=== PATIENT | male | born 1955 | race Caucasian/White ===

== ENCOUNTER 2017-12-15 23:46 | Observation (INO) | payer BC ==
[~2017-12-15] VITALS: Ht 185.4 cm; Wt 88.5 kg
[2017-12-16] VITALS (12 sets, daily range): BP systolic 92–109; BP diastolic 50–67; Ht 185.4 cm; Wt 88.5 kg
[2017-12-16 00:26] LABS: BASOPHILS 1.1 % (0-2); EOSINOPHILS 4.5 % (0-7); HEMATOCRIT 43.5 % (42.0-54.0); LYMPHOCYTES 43.7 % (15-50); MCH 32.3 pg (26.0-34.0); MCHC 34.5 g/dL (31.0-37.0); MCV 93.8 fL (80.0-100.0); MEAN PLATELET VOLUME 10.2 fL (7.4-10.4); MONOCYTES 14.7 % (2-11); PLATELET COUNT 171 10x3/uL (130-400); RBC 4.64 10x6/uL (4.20-6.10); RDW 12.9 % (11.5-14.5); WBC 4.5 10x3/uL (4.8-10.8)
[2017-12-16 01:00] LABS: ALBUMIN 3.8 g/dL (3.4-5.0); ALKALINE PHOSPHATASE 111 U/L (46-116); ALT (SGPT) 28 U/L (10-68); BILIRUBIN - TOTAL 0.46 mg/dL (0.2-1.3); CALC OSMOLALITY 287 mosm/kg (275-300); CALCIUM 8.7 mg/dL (8.5-10.1); CARBON DIOXIDE 24.6 mmol/L (21.0-32.0); CHLORIDE - SERUM 105 mmol/L (98-107); CREATINE KINASE 100 UL (21-232); GLUCOSE 124 mg/dL (74-106); MAGNESIUM - SERUM 2.1 mg/dL (1.8-2.4); POTASSIUM - SERUM 4.2 mmol/L (3.5-5.1); PRO BNP 51 pg/mL (0-125); PROTEIN - SERUM 7.3 g/dL (6.4-8.2); SODIUM 142 mmol/L (136-145); T4 THYROXINE 7.7 ug/dL (4.7-13.3); THYROID STIMULATING HORMONE 4.03 uIU/mL (0.36-3.74); TROPONIN-I < 0.017 ng/mL (0.000-0.060); UREA NITROGEN 23 mg/dL (7-18); eGFR NON AFRICAN AMERICAN 80 mL/min (90-120)
[2017-12-16] MEDS ORDERED: CARDURA4 MG PO (04:39)
[2017-12-16] MEDS ORDERED: BAYER CHEWABLE81 MG PO (04:40)
[2017-12-16] MEDS ORDERED: ACETAMINOPHEN500 M1 PO (04:41)
[2017-12-16] MEDS ORDERED: CARDIZEM60 MG PO (16:37)
[2017-12-16] MEDS ORDERED: ELIQUIS5 MG PO (16:38)
== END 2017-12-16 17:25 | disposition home or self-care (01) ==
LOC: D.ER 23:46 → D.CVICU 12-16 02:13 → OBSVTIME 12-16 02:13 → D.EDHOLD 12-16 02:13 → D.CVICU 12-16 02:13
PROVIDERS: Emergency Medicine
DX: I48.91 Unspecified atrial fibrillation (principal); E07.89 Other specified disorders of thyroid

== ENCOUNTER 2019-06-04 01:39 | Emergency (ER) | payer BC ==
[~2019-06-04] VITALS: Ht 185.4 cm; Wt 81.8 kg
[~2019-06-04 01:39] MED LIST: ACETAMINOPHEN500 M1 PO; BAYER CHEWABLE81 MG PO; CARDIZEM60 MG PO; CARDURA4 MG PO; ELIQUIS5 MG PO
[2019-06-04 01:41] VITALS: Ht 185.4 cm; Wt 81.8 kg
[2019-06-04 01:58] VITALS: BP 122/78
== END 2019-06-04 02:00 | disposition home or self-care (01) ==
LOC: D.ER 01:39
DX: R33.9 Retention of urine, unspecified (principal)